=== PATIENT | female | born 1935 | race Caucasian/White ===

== ENCOUNTER 2018-03-12 13:09 | Emergency (ER) | payer MEDICARE, BC ==
[~2018-03-12] VITALS: Ht 160 cm; Wt 65.0 kg
[~2018-03-12 13:09] MED LIST: ACETAMIN500 M2 PO; ADLT ASA LOW81 MG PO; CALCIUM + D600 MG PO; COUMADIN2.5 MG PO; COUMADIN5 MG PO; COZAAR100 MG PO; SOTALOL HCL120 MG PO
[2018-03-12] MEDS ORDERED: WARFARIN5 MG PO (14:23)
[2018-03-12] MEDS ORDERED: D32000 UNI1 PO (14:24)
[2018-03-12] MEDS ORDERED: TYLENOL650 MG PO (14:24)
[2018-03-12] MEDS ORDERED: DILTIAZEM240 MG PO (14:26)
[2018-03-12] MEDS ORDERED: OMEGA 31000 MG PO (14:27)
[2018-03-12 14:39] LABS: INTERNATIONAL NORMALIZED RATIO 2.6 RATIO (0.7-1.3); PROTHROMBIN TIME 26.5 SECONDS (9.0-12.5)
[2018-03-12 15:26] VITALS: BP 133/80
== END 2018-03-12 15:26 | disposition home or self-care (01) ==
LOC: ED 13:09
PROVIDERS: Emergency Medicine
DX: S05.12XA Contusion of eyeball and orbital tissues, left eye, initial encounter (principal); S00.212A Abrasion of left eyelid and periocular area, initial encounter; S80.01XA Contusion of right knee, initial encounter; W01.0XXA Fall on same level from slipping, tripping and stumbling without subsequent striking against object, initial encounter; Y93.01 Activity, walking, marching and hiking; Y92.511 Restaurant or cafe as the place of occurrence of the external cause; R22.0 Localized swelling, mass and lump, head; M25.461 Effusion, right knee

== ENCOUNTER 2020-07-12 | Emergency (ER) | payer MEDICARE, BC ==
[~2020-07-12] MED LIST changes: +D32000 UNI1 PO; +DILTIAZEM240 MG PO; +OMEGA 31000 MG PO; +TYLENOL650 MG PO; +WARFARIN5 MG PO
[2020-07-12] MEDS ORDERED: ELIQUIS2.5 MG PO (11:21)
[2020-07-12] MEDS ORDERED: SOTALOL AF80 MG PO (11:22)
[2020-07-12 11:39] LABS: HEMOGLOBIN 15.1 g/dl (12.0-16.0); IMMATURE GRANULOCYTES 0.2 % (0.0-5.0); MEAN CORPUSCULAR HGB 30.2 pG CALC (26.0-32.0); MEAN CORPUSCULAR HGB CONC 33.6 g/dL CAL (32.0-36.0); NEUT# 6.08 thou/uL (2.00-7.15); RED CELL DISTRI WIDTH 12.8 % (11.5-15.5)
[2020-07-12 11:51] LABS: ALBUMIN 4.2 g/dL (3.2-5.0); ALKALINE PHOSPHATASE 53 u/l (38-126); ANION GAP 12 (6-22 (CALC)); BUN 10 mg/dL (8-23); BUN/CREATININE RATIO 17 (12-20 (CALC)); CARBON DIOXIDE 28 mmol/l (22-30); CHLORIDE 98 mmol/l (95-108); CREATININE 0.6 mg/dL (0.5-1.0); GFR > 60 ML/MIN (>=60 (CALC)); GFR FOR AFR.AMER. > 60 ML/MIN (>=60 (CALC)); POTASSIUM 3.9 mmol/l (3.5-5.1); SGOT/AST 20 u/l (9-36); SODIUM 135 mmol/l (137-146)
[2020-07-12 11:52] LABS: BILIRUBIN, TOTAL 1.1 mg/dL (0.0-1.4)
== END 2020-07-12 12:54 | disposition home or self-care (01) ==
PROVIDERS: Emergency Medicine
DX: M19.072 Primary osteoarthritis, left ankle and foot (principal); I10 Essential (primary) hypertension; I48.91 Unspecified atrial fibrillation; Z95.0 Presence of cardiac pacemaker